=== PATIENT | female | born 1945 | race Caucasian/White ===

== ENCOUNTER 2018-07-08 05:18 | Inpatient (IN) ==
[2018-07-08] MEDS ORDERED: Chlorhexidine Gluconate 2% 1 Pack (2 Cloths) TOPICAL ONE (05:46)
[2018-07-08] MEDS ORDERED: Metoprolol Tartrate 25 MG Tablet PO ONE (05:46)
[2018-07-08] MEDS ORDERED: Sodium Chlor 0.9% Inj 500 ML IV.SIG SCH (06:00)
[2018-07-08] MEDS ORDERED: Heparin - SQ 10,000 UNITS/ML Vial ONE (06:33)
[2018-07-08] MEDS ORDERED: Sodium Chlor 0.9% Inj 20 ML, Bupivacaine Liposo PF 1.3% Inj 20 ML, Dexamethasone PF Inj... IRRIGATION ONE ×4 (07:10)
[2018-07-08 08:30] LABS: ABG Base Excess -1.2 mmol/L (-2-2); ABG PCO2 39 mmHg (38-42); ABG PO2 178 mmHg (61-120)
[2018-07-08] MEDS ORDERED: Sugammadex Inj 200 MG/2 ML Vial IV.PUSH ONE (09:33)
[2018-07-08] MEDS ORDERED: hydroCHLOROthiazide 25 MG Tablet PO PRN (13:04)
[2018-07-08] MEDS ORDERED: Post-op Orders (for Pharmacy) OTHER STA (13:05)
[2018-07-08] MEDS ORDERED: Bisacodyl 10 MG Supp RECTAL PRN (13:05)
[2018-07-08] MEDS ORDERED: Acetaminophen 325 MG Tablet PO PRN (13:05)
--- NOTE | 2018-07-08 13:14 | P.OP ---
Date of procedure: 07/08/18 Anesthesia: GETA Surgeon: Christiano León MD Operation and Findings: PREOPERATIVE DIAGNOSIS 1. Left Upper Lobe Lung Mass 2. COPD 3. Previous Right Upper Lobectomy for Lung Cancer 4. Diabetes Mellitus POSTOPERATIVE DIAGNOSIS same PROCEDURES 1. Robotic Left Upper Lobectomy 2. Mediastinal Lymph Node Dissection. 3. Intercostal Nerve Block 4. Cryo Nerve Block SURGEON Christiano León MD FISH BAIT PROCESSING SUPERVISOR Rebeca Carpenter, STEVE Ferrara ANESTHESIA General endotracheal. TAXICAB DRIVER CARLA Narayanan MD OPERATIVE TIME Please see record. COMPLICATIONS None. INDICATION FOR PROCEDURE The patient is a 72yo with left upper lung mass with an associated hilar secondary mass. She is now being brought to the operating room for surgical resection. DESCRIPTION OF PROCEDURE The patient was brought to the operating suite and placed in supine position. Following satisfactory induction of general endotracheal anesthesia, the patient was placed in the right lateral decubitus position. The left chest was then prepped and draped in the usual sterile fashion. Under direct vision, camera was introduced in the 8 th ICS and insufflation was begun into the chest . Instrument arm 1, 2, and 3 were placed. Lesion was identified. The inferior pulmonary ligament was divided. The pulmonary arterial supply to the upper lobe was identified, dissected free and divided as was the pulmonary venous supply. The bronchus was then dissected free, clamped and the remaining lung was insufflated without any difficulty. Lymph node dissection was performed along with the course of this removal. Some of these were retained with the specimen. Specimen was bagged and removed from the chest. A 32-[place] chest tube was placed. Intercostal nerve block was performed at the level of the incision and 3 rib spaces above and below using Exparel with Decadron solution. Cryo nerve block was performed using the AtriCure Cryo-probe at the level of the incision as well as two intercostal spaces above and below. Tissell was sprayed along the staple line and no air-leaks were identified. Wounds were closed with 2-0, 3 -0, and 4-0 Monocryl. The patient tolerated the procedure well and postoperatively went to recovery in stable condition.
[2018-07-08] MEDS ORDERED: *morphine SULFATE 10 MG/ML PERIprocedure ONLY ONE (13:53)
[2018-07-08] MEDS ORDERED: Morphine Inj 4 MG/ML Vial ONE (13:56)
[2018-07-08] MEDS ORDERED: fentaNYL Citrate Inj 100 MCG/2 ML Ampul ONE (13:56)
[2018-07-08] MEDS ORDERED: Ketorolac Inj 30 MG/ML (IVP) Vial ONE (14:02)
[2018-07-08] MEDS: Ketorolac Inj 30 MG/ML (IVP) Vial IV.PUSH SCH ×2 (14:04→21:58)
[2018-07-08] MEDS ORDERED: *HYDROmorphone PF Inj 1 MG/ML Ampul PERIprocedural Use ONLY ONE ×2 (14:18→16:00)
--- NOTE | 2018-07-08 15:08 | XR ---
EXAM DATE: 07/08/2018 2:03 PM EST AGE/SEX: 72 years / Female INDICATIONS: Post-op Thoracotomy. CLINICAL DATA: This is the patient's initial encounter. Patient reports that signs and symptoms have been present for 1 day and indicates a pain score of Nonresponsive. MEDICAL/SURGICAL HISTORY: . Hypothyroidism. Hypertension. Hypercholesterolemia. . Lobectomy COMPARISON: No prior exams available for comparison. FINDINGS: Portable AP view of the chest demonstrates a normal-sized cardiac silhouette. Clips and staple lines remain visualized in the right hemithorax and right hilar region. Left chest tube is present and no p neumothorax is identified. The previously documented pulmonary nodule is no longer seen. No pleural e ffusion is identified. The bones and soft tissues demonstrate no acute finding. CONCLUSION: Left chest tube is present and no pneumothorax is identified. The lungs are underinflated without an acute process identified. Electronically signed by: Arturo Dey MD 07/08/2018 3:07 PM EST
--- NOTE | 2018-07-08 15:43 | P.PNCV ---
- Note Subjective/Hospital Course: 72/ female seen in office by Dr León, presented with new findings of a left upper lobe lung mass on routine CXR. Prior hx of right upper lobe lung cancer resected in 1991 with a right thoracotomy, right upper lobectomy. Pet scan revealed 1.8cm mass in left upper lobe, PET + with a second PET + ,mass adjacent to it indicative of a hilar lymph node . PMH: DM, HTN, HLP, hx of lung cancer 07/08 electively admitted for surgery PREOPERATIVE DIAGNOSIS 1. Left Upper Lobe Lung Mass 2. COPD 3. Previous Right Upper Lobectomy for Lung Cancer 4. Diabetes Mellitus POSTOPERATIVE DIAGNOSIS same PROCEDURES 1. Robotic Left Upper Lobectomy 2. Mediastinal Lymph Node Dissection. 3. Intercostal Nerve Block 4. Cryo Nerve Block Objective: Vital Signs - 24 hr 07/08/18 06:44 07/08/18 13:29 07/08/18 13:30 Temperature 98.7 F 97.3 F L Pulse Rate 83 77 76 Respiratory Rate 20 20 20 Blood Pressure 149/76 H 119/56 L 112/57 L Pulse Oximetry 96 98 98 07/08/18 13:45 07/08/18 14:00 07/08/18 14:15 Temperature Pulse Rate 75 72 71 Respiratory Rate 14 15 19 Blood Pressure 111/57 L 100/53 L 100/57 L Pulse Oximetry 97 97 97 07/08/18 14:30 07/08/18 14:45 Temperature Pulse Rate 71 74 Respiratory Rate 16 16 Blood Pressure 105/57 L 102/52 L Pulse Oximetry 97 97 Labs: Laboratory Results - last 12 hr 07/08/18 07/08/18 07/08/18 06:38 07:45 08:16 Puncture Site Drawn in or Patient Temperature 98.6 O2 Saturation 97 ABG pH 7.39 ABG pCO2 39 ABG pO2 178 H ABG HCO3 23 ABG O2 Content 17.3 ABG Base Excess -1.2 ABG Methemoglobin 0.9 Hemoglobin 12.5 Carboxyhemoglobin 1.2 Inspired O2 100 Critical Value No POC Glucose Blood Type AB Positive Blood Type Recheck Required Antibody Screen Negative MTS Gel Crossmatch See Detail 07/08/18 13:40 Puncture Site Patient Temperature O2 Saturation ABG pH ABG pCO2 ABG pO2 ABG HCO3 ABG O2 Content ABG Base Excess ABG Methemoglobin Hemoglobin Carboxyhemoglobin Inspired O2 Critical Value POC Glucose 270 H Blood Type Blood Type Recheck Antibody Screen MTS Gel Crossmatch
--- NOTE | 2018-07-08 15:46 | P.DCO ---
- Diagnosis (1) Mass of upper lobe of right lung Status: Acute (2) COPD (chronic obstructive pulmonary disease) Status: Acute (3) Hyperlipidemia Status: Acute (4) Hypertension Status: Acute (5) Diabetes mellitus Status: Acute - Home Health Nursing Order: Medical education, Signs/symptoms of disease process, Wound care and dressing changes, Nursing assessment with vital signs Instructions: Thoracic Surgery patients Mandatory frequency Assess and evaluation, 2-3 x a week for one week Initial visit 1. Review post chest surgery instructions chest precautions, Activity, Elastic hose, Incision care, Driving, Incentive spirometry, Smoking, [place] , Work and other) 2. Need Betadine to paint incision 3. Medication reconciliation 4. Importance of follow up care/ check on appointments 5. Make calendar record temperature daily 6. When to call Home nurse, review instructions, phone list 7. Incentive Spirometry, demonstration Visit 1- Begin discharge instruction for patient family and/ or caregiver using teach back method- 1. Signs and symptoms of infection 2. Disease characteristics 3. Medicines and side effects 4. Foods and nutrition/ appetite 5. Infection control/ hand washing/ hygiene Visit 2- Continue teaching 1. Discharge instructions- include additional information on smoking cessation , Visit 3- Continue teaching- 1. Cough and deep breathing, incision monitoring. For any questions please call : / [facility] Cardiothoracic Surgery [phone] Incentive spirometry Q1 hr x 10, while awake, also use acapella device hourly whole Chest wall precautions: NO pushing or pulling, ( pt must use chest pillow support chest with all activities and with coughing Daily incision care: ok to shower ( 48hrs after chest tube removed) and then daily, no tub bath. Wash all incisions with liquid dial soap, clean wash cloth to each site, rinse and pat dry. Observe for any signs of infection, such as drainage which is dark yellow, [place], green or foul smelling. Immediately report to the surgeon any drainage from the chest incision, or legs, and for any abnormal drainage from the chest tube sites. Notify surgeon if any temp > 101.5 degrees F. When specialty dressing removed/ or if you do not have one, continue to shower daily as above, then rinse and pat incision dry and paint with betadine daily x 5 days. Allow steri strips to fall off if you have any. Avoid lotions, creams, salves, oils, etc. for the first month For Dr. Garcia patients , please obtain PA & Lat CXR in 2 weeks, results to Dr. Garcia ( prescription will be given) ( ) (Tele: [phone]) , F/U appointment: as per [place] instructions: PCP in 2 weeks, CV surgeon 2 weeks, Supervisor [facility] 3-4 weeks For any questions regarding incisions/ dressing / meds / post op care or above Symptoms, Saturday 8am-5pm Heart & Vascular Surgery Office ( Dr. León & Dr. Garcia), After Hours / Nights (5pm -8am) Weekends and Holidays Please call [facility] Cardiac [facility] Unit ([facility]) Charge Nurse - Case Management Consult Case Management Consult-Home Health: Yes - Certification I have seen patient Lindsey Ron on 07/08/18. My clinical findings support the need for the requested home health care services because: Deconditioned with increased weakness I certify that my clinical findings support that this patient is homebound because: Post-op weakness
[2018-07-08] MEDS ORDERED: *Ondansetron Inj 4 MG/2 ML Vial PERIprocedural Use ONLY ONE (15:53)
[2018-07-08] MEDS ORDERED: *Promethazine Inj 25 MG/ML Vial PERIprocedural use ONLY ONE (16:10)
[2018-07-08] MEDS: Vancomycin Inj 1,000 MG in Sodium Chlor 0.9% Inj 250 ML IV.SIG SCH (20:39)
[2018-07-08] MEDS: Senna/Docusate Sodium 8.6/50 MG Tablet PO SCH (20:40)
[2018-07-09] MEDS: Ketorolac Inj 30 MG/ML (IVP) Vial IV.PUSH SCH ×2 (03:21→08:19)
[2018-07-09 05:09] LABS: Baso % (Auto) 0.4 % (0.0-2.0); Eos % (Auto) 0.1 % (0.0-4.0); Hematocrit 39.2 % (35.0-46.0); Hemoglobin 12.6 gm/dL (11.6-15.3); Lymph # (Auto) 1.6 th/mm3 (1.0-4.8); Lymph % (Auto) 13.6 % (9.0-44.0); Mean Corpuscular HGB Conc 32.2 % (32.0-36.0); Mean Corpuscular Hemoglobin 28.6 pg (27.0-34.0); Mean Corpuscular Volume 88.9 fL (80.0-100.0); Mean Platelet Volume 8.5 fL (7.0-11.0); Mono # (Auto) 0.9 th/mm3 (0.0-0.9); Mono % (Auto) 7.6 % (0.0-8.0); Neut # (Auto) 9.3 th/mm3 (1.8-7.7); Neut % (Auto) 78.3 % (16.0-70.0); Platelet Count 292 th/mm3 (150-450); Red Blood Count 4.42 mil/mm3 (4.00-5.30); Red Cell Distribution Width 15.6 % (11.6-17.2); White Blood Count 11.9 th/mm3 (4.0-11.0)
[2018-07-09] MEDS: Levothyroxine 88 MCG Tablet PO SCH (05:12)
[2018-07-09 05:56] LABS: Anion Gap 16 meq/L (5-15); Blood Urea Nitrogen 20 mg/dL (7-18); Calcium 7.5 mg/dL (8.5-10.1); Carbon Dioxide 15.3 meq/L (21.0-32.0); Chloride 106 meq/L (98-107); Glomerular Filtration Rate Greater Than 89 mL/min (>89); Glucose,Random 179 mg/dL (74-106); Potassium 3.8 meq/L (3.5-5.1); Sodium 137 meq/L (136-145)
[2018-07-09] MEDS: Senna/Docusate Sodium 8.6/50 MG Tablet PO SCH ×2 (08:19→20:53)
[2018-07-09] MEDS: glipiZIDE 5 MG Tablet PO SCH (08:19)
[2018-07-09] MEDS: Vancomycin Inj 1,000 MG in Sodium Chlor 0.9% Inj 250 ML IV.SIG SCH (08:20)
[2018-07-09] MEDS: amLODIPine 10 MG Tablet PO SCH (08:20)
[2018-07-09] MEDS ORDERED: EMPAGLIFLOZIN 25 MG PO SCH (09:00)
[2018-07-09] MEDS ORDERED: Dextrose 50% in Water 50 ML Vial IV.PUSH PRN (10:33)
[2018-07-09] MEDS: Insulin NovoLOG Aspart Correctional Sugar Inj SQ SCH ×3 (11:43→20:52)
--- NOTE | 2018-07-09 12:50 | P.PNCV ---
- Note Subjective/Hospital Course: 72/ female seen in office by Dr León, presented with new findings of a left upper lobe lung mass on routine CXR. Prior hx of right upper lobe lung cancer resected in 1991 with a right thoracotomy, right upper lobectomy. Pet scan revealed 1.8cm mass in left upper lobe, PET + with a second PET + ,mass adjacent to it indicative of a hilar lymph node . PMH: DM, HTN, HLP, hx of lung cancer 07/08 electively admitted for surgery PREOPERATIVE DIAGNOSIS 1. Left Upper Lobe Lung Mass 2. COPD 3. Previous Right Upper Lobectomy for Lung Cancer 4. Diabetes Mellitus POSTOPERATIVE DIAGNOSIS same PROCEDURES 1. Robotic Left Upper Lobectomy 2. Mediastinal Lymph Node Dissection. 3. Intercostal Nerve Block 4. Cryo Nerve Block 07/09 on room air , c/o of pain /10 when OOB ambulating, will add toradol prn pulm toileting , await path , leave chest tube in BGM elevated, will add insulin sliding scale Objective: Vital Signs - 24 hr 07/08/18 13:29 07/08/18 13:30 07/08/18 13:45 Temperature 97.3 F L Pulse Rate 77 76 75 Respiratory Rate 20 20 14 Blood Pressure 119/56 L 112/57 L 111/57 L Pulse Oximetry 98 98 97 07/08/18 14:00 07/08/18 14:15 07/08/18 14:30 Temperature Pulse Rate 72 71 71 Respiratory Rate 15 19 16 Blood Pressure 100/53 L 100/57 L 105/57 L Pulse Oximetry 97 97 97 07/08/18 14:45 07/08/18 16:42 07/08/18 20:00 Temperature 97.7 F 97.7 F Pulse Rate 74 73 80 Respiratory Rate 16 14 16 Blood Pressure 102/52 L 107/58 L 119/60 Pulse Oximetry 97 96 95 07/08/18 21:00 07/08/18 22:00 07/08/18 22:56 Temperature 97.7 F Pulse Rate 79 78 77 Respiratory Rate 16 Blood Pressure 100/51 L Pulse Oximetry 95 07/08/18 23:00 07/08/18 23:51 07/09/18 00:00 Temperature 97.7 F Pulse Rate 78 77 80 Respiratory Rate 16 Blood Pressure 100/51 L Pulse Oximetry 95 07/09/18 00:59 07/09/18 02:00 07/09/18 03:00 Temperature Pulse Rate 77 82 82 Respiratory Rate Blood Pressure Pulse Oximetry 07/09/18 03:11 07/09/18 04:00 07/09/18 05:00 Temperature 97.8 F Pulse Rate 84 80 85 Respiratory Rate 18 16 Blood Pressure 113/56 L Pulse Oximetry 97 95 07/09/18 05:52 07/09/18 07:00 07/09/18 08:00 Temperature 98.4 F Pulse Rate 83 77 88 Respiratory Rate 20 Blood Pressure 125/58 L Pulse Oximetry 93 L 07/09/18 09:00 07/09/18 09:01 07/09/18 10:00 Temperature Pulse Rate 78 82 84 Respiratory Rate 15 Blood Pressure Pulse Oximetry 94 L 07/09/18 12:00 Temperature 98.7 F Pulse Rate 80 Respiratory Rate 20 Blood Pressure 118/77 Pulse Oximetry 95 GENERAL: A&O x 3 SKIN: Warm and dry. incisions intact to left posterior chest , chest tube in place HEAD: Normocephalic. EYES: No scleral icterus. No injection or drainage. NECK: Supple, trachea midline. No JVD or lymphadenopathy. CARDIOVASCULAR: Regular rate and rhythm without murmurs, gallops, or rubs. RESPIRATORY:chest tube drained 270cc/ 24 hrs , 170cc/ 12 hrs Breath sounds equal bilaterally. No accessory muscle use. GASTROINTESTINAL: Abdomen soft, non-tender, nondistended. MUSCULOSKELETAL: No cyanosis, or edema. BACK: Nontender without obvious deformity. No CVA tenderness. Labs: Laboratory Results - last 12 hr 07/09/18 07/09/18 07/09/18 03:57 03:57 08:09 WBC 11.9 H RBC 4.42 Hgb 12.6 Hct 39.2 MCV 88.9 MCH 28.6 MCHC 32.2 RDW 15.6 Plt Count 292 MPV 8.5 Neut % (Auto) 78.3 H Lymph % (Auto) 13.6 [place] % (Auto) 7.6 Eos % (Auto) 0.1 Baso % (Auto) 0.4 Neut # (Auto) 9.3 H Lymph # (Auto) 1.6 [place] # (Auto) 0.9 Eos # (Auto) 0.0 Baso # (Auto) 0.0 WBC Differential . Differential Comment Auto diff final Sodium 137 Potassium 3.8 Chloride 106 Carbon Dioxide 15.3 L Anion Gap 16 H BUN 20 H Creatinine 0.59 Estimated GFR Greater than 89 POC Glucose 254 H Random Glucose 179 H Calcium 7.5 L Result Diagrams: 07/09/18 03:57 07/09/18 03:57 - Plan (3) Hyperlipidemia Plan: on statin (4) Hypertension Plan: home meds resumed (5) Diabetes mellitus Plan: home meds resumed insulin sliding scale added (6) Status post lung surgery Plan: pulm toileting pain control nebs, ezpap await path leave chest tube
--- NOTE | 2018-07-09 14:05 | XR ---
EXAM DATE: 07/09/2018 1:44 PM EST AGE/SEX: 72 years / Female INDICATIONS: Post-op left upper Lobectomy. Patient has some discomfort at site of chest tube. CLINICAL DATA: This is the patient's subsequent encounter. Patient reports that signs and symptoms h ave been present for 2 days and indicates a pain score of 0/10. MEDICAL/SURGICAL HISTORY: Carcinoma, lung. Hypothyroidism. Hypertension. Hypercholesterolemia. . Right Lobectomy for cancer, right upper per patient 25 years ago. COMPARISON: [facility] [place], CHEST 1V SINGLE AP, 07/08/2018. . FINDINGS: Stable left apical chest tube in place. No significant pneumothorax. Persistent elevation of the left hemidiaphragm with postsurgical features of left lobectomy. Improved aeration in the right lower angeline g zone. Cardiomediastinal contours are stable. Remainder of exam is unchanged. CONCLUSION: 1. No significant interval change. 2. Stable left apical chest tube without significant pneumothorax. 3. Stable postoperative features of left upper lobectomy. Electronically signed by: Huy Lewis MD 07/09/2018 2:04 PM EST
[2018-07-09] MEDS: Ketorolac Inj 30 MG/ML (IVP) Vial IV.PUSH PRN (20:47)
[2018-07-10] MEDS: Ketorolac Inj 30 MG/ML (IVP) Vial IV.PUSH PRN ×2 (04:04→12:25)
[2018-07-10] MEDS: Levothyroxine 88 MCG Tablet PO SCH (06:00)
[2018-07-10] MEDS: Insulin NovoLOG Aspart Correctional Sugar Inj SQ SCH ×2 (08:00→12:24)
[2018-07-10] MEDS: Senna/Docusate Sodium 8.6/50 MG Tablet PO SCH (08:02)
[2018-07-10] MEDS: amLODIPine 10 MG Tablet PO SCH (08:02)
[2018-07-10] MEDS: glipiZIDE 5 MG Tablet PO SCH (08:03)
--- NOTE | 2018-07-10 10:11 | P.PNCV ---
- Note Subjective/Hospital Course: 72/ female seen in office by Dr León, presented with new findings of a left upper lobe lung mass on routine CXR. Prior hx of right upper lobe lung cancer resected in 1991 with a right thoracotomy, right upper lobectomy. Pet scan revealed 1.8cm mass in left upper lobe, PET + with a second PET + ,mass adjacent to it indicative of a hilar lymph node . PMH: DM, HTN, HLP, hx of lung cancer 07/08 electively admitted for surgery PREOPERATIVE DIAGNOSIS 1. Left Upper Lobe Lung Mass 2. COPD 3. Previous Right Upper Lobectomy for Lung Cancer 4. Diabetes Mellitus POSTOPERATIVE DIAGNOSIS same PROCEDURES 1. Robotic Left Upper Lobectomy 2. Mediastinal Lymph Node Dissection. 3. Intercostal Nerve Block 4. Cryo Nerve Block 07/09 on room air , c/o of pain 01/12 when OOB ambulating, will add toradol prn pulm toileting , await path , leave chest tube in BGM elevated, will add insulin sliding scale 07/[address] without air-leak. Will remove later today Discussed pathology findings with pt and Likely discharge home in am Repeat chest CT in 3 months Objective: Vital Signs - 24 hr 07/09/18 11:00 07/09/18 12:00 07/09/18 13:00 Temperature 98.7 F Pulse Rate 88 80 87 Respiratory Rate 20 Blood Pressure 118/77 Pulse Oximetry 95 07/09/18 14:00 07/09/18 15:00 07/09/18 15:03 Temperature 98.6 F Pulse Rate 84 84 85 Respiratory Rate 20 Blood Pressure 118/58 L Pulse Oximetry 93 L 07/09/18 15:32 07/09/18 16:00 07/09/18 17:00 Temperature Pulse Rate 95 H 86 72 Respiratory Rate 15 Blood Pressure Pulse Oximetry 07/09/18 18:00 07/09/18 19:00 07/09/18 20:00 Temperature 98.9 F Pulse Rate 91 H 95 H 92 H Respiratory Rate 16 Blood Pressure 142/67 H Pulse Oximetry 95 07/09/18 21:00 07/09/18 21:06 07/09/18 22:00 Temperature Pulse Rate 92 H 91 H 102 H Respiratory Rate 18 Blood Pressure Pulse Oximetry 97 07/09/18 22:30 07/09/18 22:58 07/09/18 23:00 Temperature Pulse Rate 98 H Respiratory Rate 16 16 Blood Pressure Pulse Oximetry 07/10/18 00:00 07/10/18 01:00 07/10/18 02:00 Temperature 98.9 F Pulse Rate 92 H 84 84 Respiratory Rate 16 Blood Pressure 121/57 L Pulse Oximetry 92 L 07/10/18 03:34 07/10/18 04:00 07/10/18 04:45 Temperature 98.7 F Pulse Rate 81 78 Respiratory Rate 20 16 16 Blood Pressure 122/57 L Pulse Oximetry 94 L 07/10/18 06:00 07/10/18 07:00 07/10/18 07:47 Temperature Pulse Rate 62 88 Respiratory Rate 16 Blood Pressure Pulse Oximetry 07/10/18 07:48 07/10/18 09:47 Temperature 98.4 F Pulse Rate 85 94 H Respiratory Rate 17 16 Blood Pressure 135/64 Pulse Oximetry 95 95 Labs: Laboratory Results - last 12 hr 07/10/18 07:51 POC Glucose 245 H Result Diagrams: 07/09/18 03:57 07/09/18 03:57 - Plan (3) Hyperlipidemia Plan: on statin (4) Hypertension Plan: home meds resumed (5) Diabetes mellitus Plan: home meds resumed insulin sliding scale added (6) Status post lung surgery Plan: pulm toileting pain control nebs, ezpap await path leave chest tube
[2018-07-10 12:13] VITALS: BP 129/60; PULSE 103; RESP 17; TEMP 98.6; O2SAT 93
--- NOTE | 2018-07-10 12:20 | P.DS ---
Date of admission: 07/08/18 05:18 Primary care physician: Zana Lopez MD Attending physician on discharge: Christiano León Anticipated date of discharge: 07/10/18 Brief History from admission: 72/ female seen in office by Dr León, presented with new findings of a left upper lobe lung mass on routine CXR. Prior hx of right upper lobe lung cancer resected in 1991 with a right thoracotomy, right upper lobectomy. Pet scan revealed 1.8cm mass in left upper lobe, PET + with a second PET + ,mass adjacent to it indicative of a hilar lymph node . PMH: DM, HTN, HLP, hx of lung cancer Patient update on day of discharge: chest tube removed post cxr pending , if stable then dc home pt on room air DS: Diagnosis - Discharge Diagnosis (1) Mass of upper lobe of right lung Status: Acute (2) COPD (chronic obstructive pulmonary disease) Status: Chronic (3) Hyperlipidemia Status: Chronic (4) Hypertension Status: Chronic (5) Diabetes mellitus Status: Acute (6) Status post lung surgery Status: Acute DS: Medications - Discharge Medications Prescriptions: hydrocodone-acetaminophen 1 tab PO Q4H PRN #40 tab PRN Reason: Pain Scale 3 To 5 DS: Summary Hospital Course: 07/08 electively admitted for surgery PREOPERATIVE DIAGNOSIS 1. Left Upper Lobe Lung Mass 2. COPD 3. Previous Right Upper Lobectomy for Lung Cancer 4. Diabetes Mellitus POSTOPERATIVE DIAGNOSIS same PROCEDURES 1. Robotic Left Upper Lobectomy 2. Mediastinal Lymph Node Dissection. 3. Intercostal Nerve Block 4. Cryo Nerve Block 07/09 on room air , c/o of pain 6/10 when OOB ambulating, will add toradol prn pulm toileting , await path , leave chest tube in BGM elevated, will add insulin sliding scale 07/[address] without air-leak. Will remove later today Discussed pathology findings with pt and Likely discharge home in am Repeat chest CT in 3 months - Time Spent with Patient Total time spent providing and/or coordinating discharge services: Less than 30 minutes - Quality: VTE Deep Vein Thrombosis/Pulmonary Embolism Present on Admission: No Exam Vital signs: Vital Signs 07/09/18 13:00 07/09/18 14:00 07/09/18 15:00 Temperature Pulse Rate 87 84 84 Respiratory Rate Blood Pressure Pulse Oximetry 07/09/18 15:03 07/09/18 15:32 07/09/18 16:00 Temperature 98.6 F Pulse Rate 85 95 H 86 Respiratory Rate 20 15 Blood Pressure 118/58 L Pulse Oximetry 93 L 07/09/18 17:00 07/09/18 18:00 07/09/18 19:00 Temperature Pulse Rate 72 91 H 95 H Respiratory Rate Blood Pressure Pulse Oximetry 07/09/18 20:00 07/09/18 21:00 07/09/18 21:06 Temperature 98.9 F Pulse Rate 92 H 92 H 91 H Respiratory Rate 16 18 Blood Pressure 142/67 H Pulse Oximetry 95 97 07/09/18 22:00 07/09/18 22:30 07/09/18 22:58 Temperature Pulse Rate 102 H Respiratory Rate 16 16 Blood Pressure Pulse Oximetry 07/09/18 23:00 07/10/18 00:00 07/10/18 01:00 Temperature 98.9 F Pulse Rate 98 H 92 H 84 Respiratory Rate 16 Blood Pressure 121/57 L Pulse Oximetry 92 L 07/10/18 02:00 07/10/18 03:34 07/10/18 04:00 Temperature 98.7 F Pulse Rate 84 81 78 Respiratory Rate 20 16 Blood Pressure 122/57 L Pulse Oximetry 94 L 07/10/18 04:45 07/10/18 06:00 07/10/18 07:00 Temperature Pulse Rate 62 88 Respiratory Rate 16 Blood Pressure Pulse Oximetry 07/10/18 07:47 07/10/18 07:48 07/10/18 09:47 Temperature 98.4 F Pulse Rate 85 94 H Respiratory Rate 16 17 16 Blood Pressure 135/64 Pulse Oximetry 95 95 07/10/18 12:11 07/10/18 12:15 Temperature 98.6 F Pulse Rate 103 H Respiratory Rate 17 17 Blood Pressure 129/60 Pulse Oximetry 93 L Intake & Output 07/09/18 07/10/18 07/10/18 18:59 06:59 18:59 Intake Total 1210 / 1210 980 / 980 Output Total 450 / 450 480 / 480 130 / 130 Balance 760 / 760 500 / 500 -130 / -130 Weight 80 kg Intake: IV 250 / 250 Vancomycin Inj 1,000 MG In NS 250 / 250 Inj 250 ML @ 250 mls/hr IV.SIG Q12H [facility] Rx#:[id number] Oral 960 / 960 980 / 980 Output: Urine 300 / 300 480 / 480 Chest Tube Drainage 150 / 150 130 / 130 Left Pleural 150 / 150 130 / 130 Other: # Voids 3 Date of Last Bowel Movement 07/07/18 07/07/18 07/10/18 # Bowel Movements 0 0 - Constitutional no acute distress - Routine HEENT Exam Head: Present: normocephalic Eye: Present: EOMI, PERRL - Routine Neck Exam Present: supple, full ROM - Routine Chest/Breast/Axilla Exam Chest wall: Present: tenderness - Routine Respiratory Exam Present: CTA bilaterally - Routine Cardiovascular Exam Present: RRR, S1, S2 - Routine Abdominal Exam Present: soft, normoactive bowel sounds - Routine Extremities Exam Present: full ROM, pulses intact, normal capillary refill - Routine Skin Exam Present: intact, wounds Comments: incision intact to left chest , dressing to chest tube site - Routine Neurological Exam Present: alert, oriented X3, CN II-XII intact Results Procedures completed during hospitalization: 07/08 electively admitted for surgery PREOPERATIVE DIAGNOSIS 1. Left Upper Lobe Lung Mass 2. COPD 3. Previous Right Upper Lobectomy for Lung Cancer 4. Diabetes Mellitus POSTOPERATIVE DIAGNOSIS same PROCEDURES 1. Robotic Left Upper Lobectomy 2. Mediastinal Lymph Node Dissection. 3. Intercostal Nerve Block 4. Cryo Nerve Block 07/09 on room air , c/o of pain 6/10 when OOB ambulating, will add toradol prn pulm toileting , await path , leave chest tube in BGM elevated, will add insulin sliding scale 07/[address] without air-leak. Will remove later today Discussed pathology findings with pt and Likely discharge home in am Repeat chest CT in 3 months Completed studies during hospitalization: Pending at discharge 07/08/18 14:43 Surgical [PTH] Routine Labs on day of discharge: Labs from last 24 hours 07/10/18 07/09/18 07/09/18 07:51 20:46 16:20 POC Glucose 245 H 219 H 281 H - Impressions ITS Impressions Chest X-Ray 07/09/18 13:05 CONCLUSION: 1. No significant interval change. 2. Stable left apical chest tube without significant pneumothorax. 3. Stable postoperative features of left upper lobectomy. Discharge Plan - Discharge Disposition Patient Disposition: /Home Health Service - Discharge Condition Condition: Good - Discharge Order Discharge Orders: Discharge Order (Routine); Ordered 07/10/18 Ordered By: Odalis Means - Discharge Details Anticipated Discharge Date: 07/10/18 Discharge Comment: once chest xray resulted - Physicians Team Primary Care Provider: Zana Lopez Attending Provider: Christiano León - Rxs /Orders / Referrals /Forms Prescriptions: New docusate sodium [COLACE Clear] 50 mg Capsule 100 mg PO DAILY Qty: 30 RF: 0 hydrocodone-acetaminophen 5-325 mg Tablet 1 tab PO Q4H PRN (Reason: Pain Scale 3 To 5) Qty: 40 RF: 0 Continue amlodipine 10 mg Tablet 10 mg PO DAILY ascorbic acid (vitamin C) [Vitamin C] 500 mg Tablet 500 mg PO BID aspirin [Aspirin Low Dose] 81 mg Tablet,Delayed Release (Dr/Ec) 81 mg PO DAILY atorvastatin 80 mg Tablet 80 mg PO DAILY cholecalciferol (vitamin D3) [Vitamin D3] 2,000 unit Capsule 2,000 unit PO DAILY empagliflozin [Jardiance] 25 mg Tablet 25 mg PO DAILY glipizide 5 mg Tablet 5 mg PO DAILY hydrochlorothiazide 25 mg Tablet 25 mg PO DAILY PRN (Reason: Edema) levothyroxine 88 mcg Capsule 88 mcg PO DAILY losartan 100 mg Tablet 100 mg PO DAILY metformin 500 mg Tablet 500 mg PO QID [id number] [Adults Multivitamin] 18 mg iron-400 mcg-25 mcg Tablet 1 tab PO DAILY vit B comp with C-calcium carb [B-Complex] 300 mg-150 mg calcium Tablet 1 tab PO QAM Referrals: Zana Lopez MD [Primary Care Provider] - See Instructions ( Your appointment has been scheduled for [07/17/18] at [12:00 pm] If you cannot make this appointment, please call the office to reschedule ) Christiano León MD [Physician] - See Instructions ( Your appointment has been scheduled for [07/21/18] at [1:00 pm] If you cannot make this appointment, please call the office to reschedule ) Chapin Kuo MD [Physician] - See Instructions ( Your appointment has been scheduled for [08/06/18] at [2:00 pm] If you cannot make this appointment, please call the office to reschedule ) - Discharge Instructions Patient Printed Instructions: Lung Lobectomy (DC) Additional Instructions: Incentive spirometry Q1 hr x 10, while awake, also use acapella device hourly whole Chest wall precautions: NO pushing or pulling, ( pt must use chest pillow support chest with all activities and with coughing Daily incision care: ok to shower ( 48hrs after chest tube removed) and then daily, no tub bath. Wash all incisions with liquid dial soap, clean wash cloth to each site, rinse and pat dry. Observe for any signs of infection, such as drainage which is dark yellow, [place], green or foul smelling. Immediately report to the surgeon any drainage from the chest incision, or legs, and for any abnormal drainage from the chest tube sites. Notify surgeon if any temp > 101.5 degrees F. When specialty dressing removed/ or if you do not have one, continue to shower daily as above, then rinse and pat incision dry and paint with betadine daily x 5 days. Allow steri strips to fall off if you have any. Avoid lotions, creams, salves, oils, etc. for the first month For Dr. Garcia patients , please obtain PA & Lat CXR in 2 weeks, results to Dr. Garcia ( prescription will be given) ( ) (Tele: ) , F/U appointment: as per DC instructions: PCP in 2 weeks, CV surgeon 2 weeks, Application Software Engineer 3-4 weeks For any questions regarding incisions/ dressing / meds / post op care or above Symptoms, Saturday 8am-5pm Heart & Vascular Surgery Office ( Dr. León & Dr. Garcia), After Hours / Nights (5pm -8am) Weekends and Holidays Please call [facility] Cardiac Inter[facility] Unit ([facility]) Charge Nurse
--- NOTE | 2018-07-10 12:38 | XR ---
EXAM DATE: 07/10/2018 12:35 PM EST AGE/SEX: 72 years / Female INDICATIONS: Status post left chest tube removal. Evaluate for pneumothorax. CLINICAL DATA: This is the patient's subsequent encounter. Patient reports that signs and symptoms h ave been present for 3 days and indicates a pain score of 0/10. MEDICAL/SURGICAL HISTORY: Carcinoma, lung. Lobectomy. Quit smoking 32 years ago. COMPARISON: [facility] [place], CHEST 1V SINGLE AP, 07/09/2018. . FINDINGS: The left-sided chest tube is been removed. A pneumothorax is not seen. The heart size is upper limits of normal for size. There is hazy density seen in the right midlung and at the left base. Some this may secondary to compressive changes given the expiratory nature of the image. Postsurgical clips and lung he are seen at the medial right chest. CONCLUSION: Status post removal of the left-sided chest tube without evidence of a pneumothorax. Electronically signed by: Arturo Sanchez MD 07/10/2018 12:37 PM EST
== END 2018-07-10 13:36 | disposition home health service (06) ==
LOC: HSDI 05:18 → HCPC 17:00
PROVIDERS: ADMIT Thoracic Surgery (Cardiothoracic Vascular Surgery); ATTEND Thoracic Surgery (Cardiothoracic Vascular Surgery)